=== PATIENT | male | born 1975 | race Caucasian/White ===

== ENCOUNTER → 2016-04-03 | Outpatient (CLI) | payer BC ==
--- NOTE | 2016-04-03 09:36 | US ---
EXAMINATION TYPE: US abdomen complete DATE OF EXAM: 04/03/2016 9:14 AM COMPARISON: No previous CLINICAL HISTORY: R10.11 rt upper quad pain. EXAM MEASUREMENTS: Liver Length: 17.0 cm Gallbladder Wall: 0.3 cm CBD: 0.3 cm Spleen: 12.3 cm Right Kidney: 9.2 x 4.7 x 5.3 cm Left Kidney: 10.3 x 6.0 x 5.9 cm FINDINGS: The liver is heterogeneous.. The intrahepatic portion of the IVC and proximal abdominal aorta are within normal limits. There is no evidence of cholelithiasis. Common bile duct is unremarkable. The visualized portions of the pancreas are obscured by bowel gas.. The spleen is unremarkable. Kid neys are symmetric and free of hydronephrosis. No renal lesions are seen. IMPRESSION: 1. Nonspecific pattern to the liver can be seen with fatty infiltration, hepatocellular disease inclu ding hepatitis. Correlate clinically.
--- NOTE | 2016-04-03 10:03 | ECHOF ---
Referral Reason:R07.89 chest pain MEASUREMENTS -------- HEIGHT: 172.7 cm WEIGHT: 90.7 kg BP: 128/89 RVIDd: 2.6 cm (< 3.3) IVSd: 1.0 cm (0.6 - 1.1) LVIDd: 4.9 cm (3.9 - 5.3) LVPWd: 0.9 cm (0.6 - 1.1) IVSs: 1.6 cm LVIDs: 3.2 cm LVPWs: 1.3 cm LA Diam: 3.3 cm (2.7 - 3.8) Ao Diam: 3.5 cm (2.0 - 3.7) AV Cusp: 2.1 cm (1.5 - 2.6) MV EXCURSION: 17.918 mm (> 18.000) MV EF SLOPE: 100 mm/s (70 - 150) EPSS: 0.2 cm MV E Ysamany: 0.75 m/s MV DecT: 337 ms MV A Yasmany: 0.57 m/s MV E/A Ratio: 1.32 FINDINGS -------- Sinus rhythm. This was a technically good study. The left ventricular size is normal. Left ventricular wall thickness is normal. Overall left ventricular systolic function is normal with, an EF between 60 - 65 %. The right ventricle is normal in size and function. The left atrium is normal in size. The right atrium is normal in size. Aortic valve is trileaflet and is mildly thickened. Normal appearing mitral valve. No mitral regurgitation. The tricuspid valve appears structurally normal. No regurgitation noted Trace/mild (physiologic) pulmonic regurgitation. The aortic root size is normal. Normal inferior vena cava with normal inspiratory collapse consistent with estimated right atrial pressure of 5 mmHg. There is no pericardial effusion. CONCLUSIONS -------- 1. Sinus rhythm. 2. Normal appearing mitral valve. 3. The tricuspid valve appears structurally normal. 4. Trace/mild (physiologic) pulmonic regurgitation. 5. The aortic root size is normal. 6. There is no pericardial effusion. 7. This was a technically good study. 8. The left ventricular size is normal. 9. Left ventricular wall thickness is normal. 10. Overall left ventricular systolic function is normal with, an EF between 60 - 65 %. 11. The right ventricle is normal in size and function. 12. The left atrium is normal in size. 13. The right atrium is normal in size. 14. Aortic valve is trileaflet and is mildly thickened. ELECTRICIAN FRONT: Irma Abreu RDCS
== END | disposition home or self-care (01) ==
LOC: RADECHMAIN 08:30
PROVIDERS: ATTEND Nurse Practitioner Adult Health
DX: R10.11 Right upper quadrant pain (principal)
CPT/HCPCS: 76700; 93306

== ENCOUNTER 2021-07-18 16:26 | Inpatient (IN) | payer BC ==
[2021-07-18 17:10] LABS: Basophils % (A) 1 %; Eosinophils # (A) 0.1 k/uL (0-0.7); Eosinophils % (A) 2 %; HCT 45.2 % (39.0-53.0); HGB 15.2 gm/dL (13.0-17.5); Lymphocytes # (A) 2.3 k/uL (1.0-4.8); Lymphocytes % (A) 33 %; MCH 28.3 pg (25.0-35.0); MCHC 33.7 g/dL (31.0-37.0); MCV 84.1 fL (80.0-100.0); Mean Platelet Volume 7.5; Monocytes # (A) 0.3 k/uL (0-1.0); Monocytes % (A) 5 %; Neutrophils # (A) 4.1 k/uL (1.3-7.7); Neutrophils % (A) 58 %; Platelet Count 335 k/uL (150-450); RBC 5.37 m/uL (4.30-5.90); RDW 13.3 % (11.5-15.5)
[2021-07-18 17:13] LABS: ALT 34 U/L (4-49); AST 30 U/L (17-59); African American GFR (CKD) >90 (>60 ml/min/1.73 sqM); Albumin 4.7 g/dL (3.5-5.0); Alkaline Phosphatase 129 U/L (38-126); Anion Gap 11 mmol/L; Blood Urea Nitrogen 12 mg/dL (9-20); Calcium 9.8 mg/dL (8.4-10.2); Carbon Dioxide 27 mmol/L (22-30); Chloride 98 mmol/L (98-107); Glucose 328 mg/dL (74-99); Magnesium 1.9 mg/dL (1.6-2.3); Non-African American GFR(CKD) >90 (>60 ml/min/1.73 sqM); Potassium 4.4 mmol/L (3.5-5.1); Sodium 136 mmol/L (137-145); Total Bilirubin 0.4 mg/dL (0.2-1.3); Total Protein 7.6 g/dL (6.3-8.2)
[2021-07-18 17:14] LABS: Appearance,Urine Clear (Clear); Bilirubin,Urine Negative (Negative); Blood,Urine Negative (Negative); Color,Urine Light Yellow; Glucose,Urine (UA) 4+ (Negative); Ketones,Urine Negative (Negative); Leukocyte Esterase,Urine Negative (Negative); Nitrite,Urine Negative (Negative); PH, Urine 6.5 (5.0-8.0); Protein,Urine Negative (Negative); Specific Gravity,Urine 1.024 (1.001-1.035); Urobilinogen,Urine <2.0 mg/dL (<2.0)
[2021-07-18 17:15] LABS: INR 0.9 (<1.2); Partial Thromboplastin Time 22.6 sec (22.0-30.0); Prothrombin Time 9.9 sec (9.0-12.0)
[2021-07-18] MEDS ORDERED: HEPARIN SODIUM 1,000 UN/ML (10ML VL) IV ONE (17:38)
[2021-07-18] MEDS ORDERED: ASPIRIN 325 MG TAB PO STA (17:38)
[2021-07-18] MEDS ORDERED: HEPARIN SODIUM 1,000 UN/ML (10ML VL) IV PRN (17:38)
[2021-07-18] MEDS ORDERED: ATORVASTATIN 80 MG TAB PO STA (17:39)
[2021-07-18] MEDS ORDERED: HEPARIN SOD,PORK IN 0.45% NACL 25,000 UNIT in 0.45% NACL 1 250ML.BAG IV SCH (17:45)
[2021-07-18] MEDS ORDERED: MORPHINE SULFATE 2 MG/ML SYRINGE IVP PRN (17:47)
--- NOTE | 2021-07-18 17:52 | ED ---
General Adult HPI - General Chief complaint: Chest Pain Stated complaint: Chest Pain Sent by Urgent Care Time Seen by Provider: 07/18/21 17:38 Source: patient, RN notes reviewed, old records reviewed Mode of arrival: ambulatory Limitations: no limitations - History of Present Illness Initial comments: 45-year-old male type II diabetic presents for evaluation of chest pain with radiation to bilateral shoulders. Pain is been present for the past 2 days. No associated vomiting or diaphoresis. Patient does have a strong family history of CAD. He does not have any personal history of coronary artery disease. Pain is been relatively constant over the past 2 days with some exertional component. - Related Data Allergies Allergy/AdvReac Type Severity Reaction Status Date / Time No Known Allergies Allergy Verified 07/18/21 16:33 Review of Systems ROS Statement: Those systems with pertinent positive or pertinent negative responses have been documented in the HPI. ROS Other: All systems not noted in ROS Statement are negative. Past Medical History Past Medical History: Diabetes Mellitus History of Any Multi-Drug Resistant Organisms: None Reported Past Surgical History: No Surgical Hx Reported Past Psychological History: Depression Smoking Status: Never smoker Past Alcohol Use History: None Reported Past Drug Use History: None Reported General Exam Limitations: no limitations General appearance: alert, in no apparent distress Head exam: Present: atraumatic, normocephalic Eye exam: Present: normal appearance, PERRL ENT exam: Present: normal exam Neck exam: Present: normal inspection. Absent: tenderness, meningismus Respiratory exam: Present: normal lung sounds bilaterally. Absent: respiratory distress, wheezes Cardiovascular Exam: Present: regular rate, normal rhythm GI/Abdominal exam: Present: soft. Absent: distended, tenderness, guarding Extremities exam: Present: normal inspection, normal capillary refill. Absent: pedal edema Neurological exam: Present: alert, oriented X3, CN II-XII intact. Absent: motor sensory deficit Psychiatric exam: Present: normal affect, normal mood Skin exam: Present: warm, dry, intact. Absent: cyanosis, diaphoretic Course Vital Signs 07/18/21 16:30 Temperature 98.1 F Pulse Rate 90 Respiratory 18 Rate Blood Pressure 159/107 O2 Sat by Pulse 99 Oximetry EKG Findings - EKG Comments: EKG Findings:: Sinus rhythm rate of 84, CT interval 145, QRS duration 97, QTC 392, inferior lateral T-wave inversion without ST segment elevation. Medical Decision Making - Medical Decision Making 45-year-old male presenting with 2 days of chest pain with typical features. P atient has EKG showing T-wave inversion in the inferior lateral leads. No ST segment elevation. Symptoms have been relatively constant over the past 2 days. His workup reveals a normal CBC was stable hemoglobin. Normal kidney function, elevated blood sugar and elevated troponin at 0.46. Patient is started on heparin for a non-ST segment elevated WI. I did discuss case with cardiology Dr. Goodman, and the admitting team [facility]. Patient is chest pain-free on reevaluation. He will be continued on heparin, aspirin, statin. - Lab Data Result diagrams: 07/18/21 16:56 07/18/21 16:56 Lab Results 07/18/21 07/18/21 07/18/21 Range/Units 16:56 16:56 16:56 WBC 7.0 (3.8-10.6) k/uL RBC 5.37 (4.30-5.90) m/uL Hgb 15.2 (13.0-17.5) gm/dL Hct 45.2 (39.0-53.0) % MCV 84.1 (80.0-100.0) fL MCH 28.3 (25.0-35.0) pg MCHC 33.7 (31.0-37.0) g/dL RDW 13.3 (11.5-15.5) % Plt Count 335 (150-450) k/uL MPV 7.5 Neutrophils % 58 % Lymphocytes % 33 % Monocytes % 5 % Eosinophils % 2 % Basophils % 1 % Neutrophils # 4.1 (1.3-7.7) k/uL Lymphocytes # 2.3 (1.0-4.8) k/uL Monocytes # 0.3 (0-1.0) k/uL Eosinophils # 0.1 (0-0.7) k/uL Basophils # 0.0 (0-0.2) k/uL PT 9.9 (9.0-12.0) sec INR 0.9 (<1.2) APTT 22.6 (22.0-30.0) sec Sodium 136 L (137-145) mmol/L Potassium 4.4 (3.5-5.1) mmol/L Chloride 98 (98-107) mmol/L Carbon Dioxide 27 (22-30) mmol/L Anion Gap 11 mmol/L BUN 12 (9-20) mg/dL Creatinine 0.87 (0.66-1.25) mg/dL Est GFR (CKD-EPI)AfAm >90 (>60 ml/min/1.73 sqM) Est GFR (CKD-EPI)NonAf >90 (>60 ml/min/1.73 sqM) Glucose 328 H (74-99) mg/dL Calcium 9.8 (8.4-10.2) mg/dL Magnesium 1.9 (1.6-2.3) mg/dL Total Bilirubin 0.4 (0.2-1.3) mg/dL AST 30 (17-59) U/L ALT 34 (4-49) U/L Alkaline Phosphatase 129 H (38-126) U/L Troponin I (0.000-0.034) ng/mL Total Protein 7.6 (6.3-8.2) g/dL Albumin 4.7 (3.5-5.0) g/dL Urine Color Urine Appearance (Clear) Urine pH (5.0-8.0) Ur Specific Elmore (1.001-1.035) Urine Protein (Negative) Urine Glucose (UA) (Negative) Urine Ketones (Negative) Urine Blood (Negative) Urine Nitrite (Negative) Urine Bilirubin (Negative) Urine Urobilinogen (<2.0) mg/dL Ur Leukocyte Esterase (Negative) 07/18/21 07/18/21 Range/Units 16:56 16:56 WBC (3.8-10.6) k/uL RBC (4.30-5.90) m/uL Hgb (13.0-17.5) gm/dL Hct (39.0-53.0) % MCV (80.0-100.0) fL MCH (25.0-35.0) pg MCHC (31.0-37.0) g/dL RDW (11.5-15.5) % Plt Count (150-450) k/uL MPV Neutrophils % % Lymphocytes % % Monocytes % % Eosinophils % % Basophils % % Neutrophils # (1.3-7.7) k/uL Lymphocytes # (1.0-4.8) k/uL Monocytes # (0-1.0) k/uL Eosinophils # (0-0.7) k/uL Basophils # (0-0.2) k/uL PT (9.0-12.0) sec INR (<1.2) APTT (22.0-30.0) sec Sodium (137-145) mmol/L Potassium (3.5-5.1) mmol/L Chloride (98-107) mmol/L Carbon Dioxide (22-30) mmol/L Anion Gap mmol/L BUN (9-20) mg/dL Creatinine (0.66-1.25) mg/dL Est GFR (CKD-EPI)AfAm (>60 ml/min/1.73 sqM) Est GFR (CKD-EPI)NonAf (>60 ml/min/1.73 sqM) Glucose (74-99) mg/dL Calcium (8.4-10.2) mg/dL Magnesium (1.6-2.3) mg/dL Total Bilirubin (0.2-1.3) mg/dL AST (17-59) U/L ALT (4-49) U/L Alkaline Phosphatase (38-126) U/L Troponin I 0.462 H* (0.000-0.034) ng/mL Total Protein (6.3-8.2) g/dL Albumin (3.5-5.0) g/dL Urine Color Light Yellow Urine Appearance Clear (Clear) Urine pH 6.5 (5.0-8.0) Ur Specific Elmore 1.024 (1.001-1.035) Urine Protein Negative (Negative) Urine Glucose (UA) 4+ H (Negative) Urine Ketones Negative (Negative) Urine Blood Negative (Negative) Urine Nitrite Negative (Negative) Urine Bilirubin Negative (Negative) Urine Urobilinogen <2.0 (<2.0) mg/dL Ur Leukocyte Esterase Negative (Negative) Critical Care Time Critical Care Time: Yes Total Critical Care Time: 35 Disposition Clinical Impression: Acute non-ST elevation myocardial infarction (NSTEMI) Disposition: ADMITTED IP TO THIS [facility] Condition: Stable Is patient prescribed a controlled substance at d/c from ED?: No Referrals: Debbi Vences DO [Primary Care Provider] - 1-2 days Time of Disposition: 17:52
--- NOTE | 2021-07-18 18:07 | XR ---
EXAMINATION TYPE: XR chest 2V DATE OF EXAM: 07/18/2021 COMPARISON: NONE HISTORY: Pain TECHNIQUE: 2 views FINDINGS: Heart is normal. Lungs are clear. Diaphragm is normal. Bony thorax appears normal. IMPRESSION: Normal chest.
[2021-07-18] MEDS ORDERED: NITROGLYCERIN SL TABS 0.4 MG TAB SUBLINGUAL PRN (18:21)
[2021-07-18] MEDS: METOPROLOL TARTRATE 25 MG TAB PO SCH (21:05)
--- NOTE | 2021-07-18 21:41 | P.CRDCN ---
History of Present Illness History of present illness: HISTORY OF PRESENTING ILLNESS Patient is pleasant 45-year-old male with history of hypertension, diabetes mellitus type 2, hyperlipidemia and family history of CAD who presents secondary to chest pain over last 2 days. He states he has been happening off and on and today it worsened while he was walking or had to sit down and could feel his heart racing faster and after slowing down somewhat the chest pain alleviated to some degree. It has been declining however admits is still "0-0.5" out of 10 and not sure if some of the discomfort is from his positioning. EKG shows normal sinus rhythm, normal axis, T-wave inversions in the inferior leads with minimal Q-wave in lead [address] elevation in lead 3. Prior echocardiogram from 2017 showed EF 60-65% without any significant valvular disease. Blood work showed normal hemoglobin, normal creatinine 0.8, elevated glucose 328, troponin 0.46. Patient was given aspirin and heparin and still states his pain is "0-0.5 ". Denies any associated diaphoresis, nausea, shortness breath. REVIEW OF SYSTEMS At the time of my exam: CONSTITUTIONAL: Denies fever or chills. CARDIOVASCULAR: +chest pain, no shortness of breath, orthopnea, PND or palpitations. RESPIRATORY: Denies cough. GASTROINTESTINAL: Denies abdominal pain, diarrhea, constipation, nausea or vomiting. MUSCULOSKELETAL: Denies myalgias. NEUROLOGIC: Denies numbness, tingling or weakness. ENDOCRINE: Denies fatigue, weight change, polydipsia or polyurina. GENITOURINARY: Denies burning, hematuria or urgency with micturation. HEMATOLOGIC: Denies history of anemia or bleeding. PHYSICAL EXAMINATION Vital signs reviewed. CONSTITUTIONAL: No apparent distress. HEENT: Head is normocephalic. Pupils are equal, round. Sclerae anicteric. Mucous membranes of the mouth are moist. No JVD. No carotid bruit. CHEST EXAMINATION: Lungs are clear to auscultation. No chest wall tenderness is noted on palpation or with deep breathing. HEART EXAMINATION: Regular rate and rhythm. S1, S2 heard. No murmurs, gallops or rub. ABDOMEN: Soft, nontender. Positive bowel sounds. EXTREMITIES: 2+ peripheral pulses, no lower extremity edema and no calf tenderness. NEUROLOGIC EXAMINATION: Patient is awake, alert and oriented x3. ASSESSMENT 1. Non-STEMI 2. Diabetes mellitus type 2 3. Chest pain related to non-STEMI 4. Family history of CAD PLAN Continue with aspirin, heparin drip. Discussed recommendations for heart catheterization is patient is agreeable. Check 2-D echo. Beta lianne as tolerated. Further recommendations to follow. Past Medical History Past Medical History: Diabetes Mellitus History of Any Multi-Drug Resistant Organisms: None Reported Past Surgical History: No Surgical Hx Reported Past Psychological History: Depression Smoking Status: Never smoker Past Alcohol Use History: None Reported Past Drug Use History: None Reported Medications and Allergies Home Medications Medication Instructions Recorded Confirmed Type Enalapril [Vasotec] 2.5 mg PO BID 07/18/21 07/18/21 History Rosuvastatin Calcium 10 mg PO HS 07/18/21 07/18/21 History metFORMIN HCL 500 mg PO BID 07/18/21 07/18/21 History Allergies Allergy/AdvReac Type Severity Reaction Status Date / Time No Known Allergies Allergy Verified 07/18/21 16:33 Physical Exam Vitals: Vital Signs Temp Pulse Resp BP Pulse Ox 07/18/21 20:07 99 F 83 14 143/108 98 07/18/21 16:30 98.1 F 90 18 159/107 99 Intake and Output 07/18/21 07/18/21 07/18/21 06:59 14:59 22:59 Other: Weight 88.451 kg Results 07/18/21 16:56 07/18/21 16:56 Cardiac Enzymes 07/18/21 07/18/21 Range/Units 16:56 16:56 AST 30 (17-59) U/L Troponin I 0.462 H* (0.000-0.034) ng/mL Coagulation 07/18/21 Range/Units 16:56 PT 9.9 (9.0-12.0) sec APTT 22.6 (22.0-30.0) sec CBC 07/18/21 Range/Units 16:56 WBC 7.0 (3.8-10.6) k/uL RBC 5.37 (4.30-5.90) m/uL Hgb 15.2 (13.0-17.5) gm/dL Hct 45.2 (39.0-53.0) % Plt Count 335 (150-450) k/uL Comprehensive Metabolic Panel 07/18/21 Range/Units 16:56 Sodium 136 L (137-145) mmol/L Potassium 4.4 (3.5-5.1) mmol/L Chloride 98 (98-107) mmol/L Carbon Dioxide 27 (22-30) mmol/L BUN 12 (9-20) mg/dL Creatinine 0.87 (0.66-1.25) mg/dL Glucose 328 H (74-99) mg/dL Calcium 9.8 (8.4-10.2) mg/dL AST 30 (17-59) U/L ALT 34 (4-49) U/L Alkaline Phosphatase 129 H (38-126) U/L Total Protein 7.6 (6.3-8.2) g/dL Albumin 4.7 (3.5-5.0) g/dL Current Medications Generic Name Dose Route Start Last Admin Trade Name Freq PRN Reason Stop Dose Admin Aspirin 325 mg 07/19/21 09:00 Aspirin 325 Mg Tab PO DAILY [facility] Heparin Sodium (Porcine) 0 unit 07/18/21 17:38 Heparin Sodium 1,000 Un/Ml (10ml Vl) IV PER PROTOCOL PRN Low PTT Protocol Heparin Sodium/Sodium Chloride 250 mls @ 9.995 mls/hr 07/18/21 17:45 07/18/21 18:04 25,000 unit/ Sodium Chloride IV 11.3 units/kg/hr .Q24H JOCELYNE 9.995 mls/hr Administration Protocol 11.3 UNITS/KG/HR Metoprolol Tartrate 25 mg 07/18/21 21:00 07/18/21 21:05 Metoprolol Tartrate 25 Mg Tab PO 25 mg BID JOCELYNE Administration Morphine Sulfate 2 mg 07/18/21 17:47 Morphine Sulfate 2 Mg/Ml Syringe IVP Q5M PRN Chest Pain Nitroglycerin 0.4 mg 07/18/21 18:21 Nitroglycerin Sl Tabs 0.4 Mg Tab SUBLINGUAL Q5M PRN Chest Pain Intake and Output 07/18/21 07/18/21 07/18/21 06:59 14:59 22:59 Other: Weight 88.451 kg Patient Weight 07/19/21 06:59 Weight 88.451 kg 07/18/21 16:56 07/18/21 16:56
[2021-07-19] MEDS: ATORVASTATIN 20 MG TAB PO SCH ×2 (00:15→21:49)
[2021-07-19 06:34] LABS: Glucose,Whole Blood 331 mg/dL (75-99)
[2021-07-19] MEDS: INSULIN ASPART (NovoLOG) 100 UNIT/ML VIAL SQ SCH ×4 (06:34→21:40)
[2021-07-19 08:35] LABS: INR 0.9 (<1.2); Prothrombin Time 10.2 sec (9.0-12.0)
[2021-07-19] MEDS: METOPROLOL TARTRATE 25 MG TAB PO SCH ×2 (08:43→21:49)
[2021-07-19 08:53] LABS: Basophils # (A) 0.1 k/uL (0-0.2); Basophils % (A) 1 %; Eosinophils # (A) 0.1 k/uL (0-0.7); Eosinophils % (A) 1 %; HCT 45.1 % (39.0-53.0); HGB 15.3 gm/dL (13.0-17.5); Lymphocytes % (A) 31 %; MCH 28.7 pg (25.0-35.0); MCV 84.4 fL (80.0-100.0); Mean Platelet Volume 7.8; Monocytes # (A) 0.4 k/uL (0-1.0); Monocytes % (A) 6 %; Neutrophils # (A) 3.7 k/uL (1.3-7.7); Neutrophils % (A) 58 %; Platelet Count 314 k/uL (150-450); RBC 5.35 m/uL (4.30-5.90); RDW 13.3 % (11.5-15.5); WBC 6.4 k/uL (3.8-10.6)
[2021-07-19] MEDS ORDERED: ASPIRIN 325 MG TAB PO SCH (09:00)
[2021-07-19] MEDS ORDERED: VERAPAMIL 2.5 MG/ML 2 ML AMP ONE (10:46)
[2021-07-19] MEDS ORDERED: SODIUM CHLORIDE 0.9% 1,000 ML IV ONE (10:47)
[2021-07-19] MEDS ORDERED: HEPARIN SODIUM 1,000 UN/ML (10ML VL) ONE ×2 (11:09→12:02)
[2021-07-19] MEDS ORDERED: fentaNYL (PF) 50 MCG/ML 2 ML AMP ONE (11:10)
[2021-07-19] MEDS ORDERED: MIDAZOLAM 2 MG/2 ML VIAL IV ONE (11:12)
[2021-07-19] MEDS ORDERED: fentaNYL (PF) 50 MCG/ML 2 ML AMP IV ONE (11:12)
[2021-07-19] MEDS ORDERED: LIDOCAINE 1% INJ 10MG/ML (5 ML VIAL-PF) SQ ONE (11:18)
[2021-07-19] MEDS ORDERED: VERAPAMIL SYRINGE (5 MG/10 ML) INTRAARTER ONE (11:20)
[2021-07-19] MEDS: HEPARIN SODIUM 1,000 UN/ML (10ML VL) IV ONE ×5 (11:23→12:27)
[2021-07-19] MEDS ORDERED: TICAGRELOR 90 MG TAB PO ONE (11:35)
[2021-07-19] MEDS ORDERED: TICAGRELOR 90 MG TAB ONE (11:35)
[2021-07-19] MEDS: NITROGLYCERIN 1000MCG/10ML SYRINGE INTRACORON ONE ×3 (11:38→12:00)
--- NOTE | 2021-07-19 11:59 | CA ---
Transthoracic Echo Report Name: Micky Aranda Age: 45 Gender: M : 1975 Exam Date: 07/19/2021 08:10 Exam Location: [facility] Ht (in): 69 Wt (lb): 180 Ordering Physician: Ben Horowitz MD Attending/Referring Phys: [id number], Lor [employer]omic[employer] Investigator Hui Howe RDCS Procedure CPT: Indications: nstemi Cardiac Hx: Technical Quality: Good Contrast 1: Total Dose (mL): Contrast 2: Total Dose (mL): MEASUREMENTS (Male / Female) Normal Values 2D ECHO LV Diastolic Diameter PLAX 3.6 cm 4.2 - 5.9 / 3.9 - 5.3 cm LV Systolic Diameter PLAX 2.8 cm IVS Diastolic Thickness 1.0 cm 0.6 - 1.0 / 0.6 - 0.9 cm LVPW Diastolic Thickness 1.2 cm 0.6 - 1.0 / 0.6 - 0.9 cm LV Relative Wall Thickness 0.6 LA Volume 21.9 cm??? 18 - 58 / 22 - 52 cm??? M-MODE Aortic Root Diameter MM 3.6 cm LA Systolic Diameter MM 2.9 cm LA Ao Ratio MM 0.8 MV E Point Septal Separation 0.5 cm AV Cusp Separation MM 2.0 cm DOPPLER AV Peak Velocity 87.0 cm/s AV Peak Gradient 3.0 mmHg MV Area PHT 4.7 cm??? Mitral E Point Velocity 69.9 cm/s Mitral A Point Velocity 65.1 cm/s Mitral E to A Ratio 1.1 MV Deceleration Time 162.1 ms MV E' Velocity 8.4 cm/s Mitral E to MV E' Ratio 8.4 TR Peak Velocity 165.5 cm/s TR Peak Gradient 11.0 mmHg Right Ventricular Systolic Press 15.7 mmHg FINDINGS Left Ventricle Left ventricular ejection fraction is estimated at 50-55 %. Normal Left ventricular size, wall thickness, systolic function with no obvious regional wall motion abnormalities. Normal Left ventricular diastolic filling pattern. Questionable basal inferior hypokinesis Right Ventricle The right ventricle is normal in size and function. Right Atrium The right atrium is normal in size. Left Atrium The left atrium is normal in size. Mitral Valve Structurally normal mitral valve without significant stenosis or prolapse. There is trace mitral regurgitation. Aortic Valve Structurally normal aortic valve without significant sclerosis or stenosis. There is no aortic regurgitation. Tricuspid Valve Structurally normal tricuspid valve without significant stenosis. Pulmonary artery systolic pressure is normal. Trace tricuspid regurgitation. Pulmonic Valve Structurally normal pulmonic valve without significant stenosis. There is no pulmonic regurgitation. Pericardium Normal pericardium without effusion. Aorta Normal aortic root dimension. CONCLUSIONS Left ventricular systolic function is normal. Basal inferior wall appears mildly hypokinetic. Previewed by: Dr. Micah Riley MD (Electronically Signed) Final Date: 19 Jul 2021 11:58
[2021-07-19 12:03] LABS: Chol/HDL Ratio 3.11 Ratio
[2021-07-19] MEDS ORDERED: IOPAMIDOL-370 125ML BTL INJ ONE (12:12)
[2021-07-19] MEDS ORDERED: NITROGLYCERIN 1000MCG/10ML SYRINGE INTRACORON ONE (12:23)
[2021-07-19] MEDS ORDERED: IOPAMIDOL-370 100ML BTL INJ ONE (12:35)
--- NOTE | 2021-07-19 12:57 | P.PRCINT ---
Percutaneous Coronary Int. - Percutaneous Coronary Intervention Percutaneous Coronary Intervention: PROCEDURES PERFORMED: Left heart catheterization, bilateral coronary angiography, PCI proximal LAD 3.5 x 15 mm Xience JAMES, kissing balloon angioplasty proximal LAD/ diagonal 1 with 2.75 x 12 mm noncompliant and 2.25 x 1 2 mm noncompliant respectively, PCI mid circumflex with 2.75 x 12 mm Xience JAMES postdilated with a 3.0 noncompliant balloon INDICATION: Non-STEMI CONSENT:I have discussed the risks, benefits and alternative therapies for the above-mentioned procedure and for both sedation/analgesia as well as necessary blood product administration, if indicated, as they pertain to this patient. The patient has indicated understanding and acceptance of the risks and procedures discussed. PROCEDURE: After the risks, benefits and alternatives of the above mentioned procedure explained in detail with the patient, informed consent was obtained. Patient was taken to the catheterization lab and prepped and draped in usual fashion. 1% lidocaine was used to anesthetize the right radial artery. A 6- Chadian sheath was placed in the right radial artery using modified Seldinger technique. Left coronary angiography was performed with a 5-Chadian JL 3.5 catheter and right coronary angiography was performed with a 5-Chadian JR5 catheter in various views. A 5-Chadian FR5 catheter was inserted into the left ventricle and pressure measurements were obtained. The decision was made to perform PCI of the proximal LAD and circumflex. Heparin was given for ACT greater than 250. A 6-Chadian CLS 3.0 guide was used to engage the left main. A 0.014 BMW wire was advanced into the distal LAD. Predilation was performed with 2.5 x 12 mm and then 3.0 x 12 mm noncompliant balloons. Next a 3.5 x 15 mm Xience JAMES was placed in the proximal LAD covering the diagonal branch. There was disease noted before intervention of the diagonal 1 branch with 70% proximal stenosis. After intervention there was a 90% diagonal 1 stenosis and therefore balloon angioplasty was recommended. Therefore a second 0.014 BMW wire was advanced into the distal diagonal branch. Balloon angioplasty was performed through the struts with a 1.5 mm balloon. Next kissing balloon angioplasty was performed with a 2.25 x 12 mm noncompliant balloon in the diagonal 1 branch and a 2.75 x 12 mm noncompliant balloon in the LAD. Preintervention there is LEANNE-3 flow and 85% LAD stenosis as well as diagonal 170% stenosis and post intervention there was less than 10% LAD stenosis and less than 30% diagonal 1 stenosis with LEANNE 3 flow. The BMW wire was advanced into the distal circumflex. Primary stenting was performed with a 2.75 x 12 mm Xience JAMES. The stent was postdilated with a 3.0 x 8 mm noncompliant balloon. Preintervention there was 99% stenosis with LEANNE 2 flow and post intervention there was 0% stenosis with LEANNE 3 flow. The right radial sheath was removed and a TR band was placed with hemostasis achieved. The patient tolerated the procedure well. Patient was transported back to the post catheterization holding area in stable condition. Conscious Sedation: Patient was monitored under the direct supervision of vision of myself for conscious sedation using Versed and fentanyl for a total duration of 81 minutes HEMODYNAMICS: Aorta: 98/62 LV: 102/2, LVEDP 9 SELECTIVE CORONARY ARTERIOGRAPHY: LEFT MAIN: The left main is a large caliber vessel which bifurcates into the LAD and circumflex. There is no significant stenosis. LEFT ANTERIOR DESCENDING CORONARY ARTERY: LAD is a large caliber vessel which wraps around to the apex. There is a proximal LAD 85% stenosis involving the diagonal 1 branch. Diagonal 1 branch is small to moderate caliber with a diffuse proximal 70% stenosis. There are mild luminal irregularities of the mid LAD and a mid to distal 60% LAD stenosis. LEFT CIRCUMFLEX CORONARY ARTERY: Left circumflex is a moderate caliber vessel with a mid circumflex 99% stenosis with LEANNE 2 flow. OM1 is a proximal 60-70% stenosis. Otherwise there is no significant disease.. RIGHT CORONARY ARTERY: The right coronary artery is a moderate to large caliber vessel which gives off a PDA and PLV branch and is the dominant vessel. The PDA has mild luminal irregularities. The PLV is very small caliber and has diffuse 70% stenosis. FINAL IMPRESSION: 1. CAD as described above including 85% proximal LAD stenosis, 70% diagonal 1 stenosis, mid to distal LAD 60% stenosis, mid circumflex 99% stenosis, OM1 60s to 70% stenosis, small caliber PLV 70% stenosis 2. S/p successful PCI proximal LAD 3.5 x 15 mm Xience JAMES, kissing balloon angioplasty proximal LAD/ diagonal 1 with 2.75 x 12 mm noncompliant and 2.25 x 12 mm noncompliant respectively, PCI mid circumflex with 2.75 x 12 mm Xience JAMES postdilated with a 3.0 noncompliant balloon 3. Normal left sided filling pressures PLAN: 1. Aggressive risk factor modification per most recent ACC/AHA guidelines. 2. Continue dual antiplatelets with aspirin and Brillinta for 12 months. 3. Would treat remainder of distal LAD 60%, proximal OM1 60-70% and small caliber PLV 70% stenosis medically. Monitor for any recurrent angina.
[2021-07-19] MEDS ORDERED: ATROPINE SULFATE 0.1 MG/ML 10ML SYRINGE IV PRN (12:58)
[2021-07-19] MEDS ORDERED: NITROGLYCERIN SL TABS 0.4 MG TAB SUBLINGUAL PRN (12:58)
[2021-07-19] MEDS ORDERED: MAG HYDROX/AL HYDROX/SIMETH 30 ML CUP PO PRN (12:58)
[2021-07-19] MEDS ORDERED: ZOLPIDEM 5 MG TAB PO PRN (12:58)
[2021-07-19] MEDS ORDERED: RX INFO: IV CONTRAST WAS GIVEN 1 EACH MISC MISCELLANE PRN (12:58)
[2021-07-19] MEDS: SODIUM CHLORIDE 0.9% 1,000 ML in EMPTY BAG 1 BAG IV SCH (13:26)
[2021-07-19 13:46] LABS: Glucose,Whole Blood 257 mg/dL (75-99)
[2021-07-19 16:31] LABS: Glucose,Whole Blood 374 mg/dL (75-99)
--- NOTE | 2021-07-19 17:49 | P.HPIM ---
History of Present Illness H&P Date: 07/19/21 Chief Complaint: Chest pain 45-year-old male type II diabetic presents for evaluation of chest pain with radiation to bilateral shoulders. Pain is been present for the past 2 days. No associated vomiting or diaphoresis. Patient does have a strong family history of CAD. He does not have any personal history of coronary artery disease. Pain is been relatively constant over the past 2 days with some exertional component. EKG shows normal sinus rhythm, normal axis, T-wave inversions in the inferior leads with minimal Q-wave in lead [address] elevation in lead 3. Prior echocardiogram from 2017 showed EF 60-65% without any significant valvular disease. Blood work showed normal hemoglobin, normal creatinine 0.8, elevated glucose 328, troponin 0.46. Patient was given aspirin and heparin and still states his pain is "0-0.5 ". Denies any associated diaphoresis, nausea, shortness breath. Review of Systems REVIEW OF SYSTEMS: CONSTITUTIONAL: No fever, no malaise, no fatigue. HEENT: No recent visual problems or hearing problems. Denied any sore throat. CARDIOVASCULAR: No chest pain, orthopnea, PND, no palpitations, no syncope. PULMONARY: No shortness of breath, no cough, no hemoptysis. GASTROINTESTINAL: No diarrhea, no nausea, no vomiting, no abdominal pain. NEUROLOGICAL: No headaches, no weakness, no numbness. HEMATOLOGICAL: Denies any bleeding or petechiae. GENITOURINARY: Denies any burning micturition, frequency, or urgency. MUSCULOSKELETAL/RHEUMATOLOGICAL: Denies any joint pain, swelling, or any muscle pain. ENDOCRINE: Denies any polyuria or polydipsia. The rest of the 14-point review of systems is negative. Past Medical History Past Medical History: Diabetes Mellitus History of Any Multi-Drug Resistant Organisms: None Reported Past Surgical History: No Surgical Hx Reported Additional Past Surgical History / Comment(s): Vastectomy Past Anesthesia/Blood Transfusion Reactions: No Reported Reaction Past Psychological History: Depression Smoking Status: Never smoker Past Alcohol Use History: None Reported Past Drug Use History: None Reported Medications and Allergies Home Medications Medication Instructions Recorded Confirmed Type Enalapril [Vasotec] 2.5 mg PO BID 07/18/21 07/18/21 History Rosuvastatin Calcium 10 mg PO HS 07/18/21 07/18/21 History metFORMIN HCL 500 mg PO BID 07/18/21 07/18/21 History Allergies Allergy/AdvReac Type Severity Reaction Status Date / Time No Known Allergies Allergy Verified 07/18/21 16:33 Physical Exam Vitals: Vital Signs Temp Pulse Pulse Resp BP BP Pulse Ox 07/19/21 08:40 97.3 F L 85 18 131/86 99 07/19/21 08:36 18 07/19/21 04:00 97.9 F 80 17 120/73 99 07/19/21 02:00 82 07/19/21 00:00 98.1 F 82 17 121/72 99 07/18/21 20:07 99 F 83 14 143/108 98 07/18/21 19:15 98.6 F 77 17 127/73 97 07/18/21 16:30 98.1 F 90 18 159/107 99 Intake and Output 07/18/21 07/19/21 07/19/21 22:59 06:59 14:59 Intake Total 44.978 916.492 Balance 44.978 916.492 Intake: Intake, IV Titration 44.978 16.492 Amount Heparin Sod,Pork in 0.45% 44.978 16.492 NaCl 25,000 unit In 0.45 % NaCl 1 250ml.bag @ 11.3 UNITS/KG/HR 9.995 mls/hr IV .Q24H JOCELYNE Rx#: [id number] Oral 900 Other: # Voids 2 Weight 86.4 kg PHYSICAL EXAMINATION: GENERAL: The patient is alert and oriented x3, not in any acute distress. Well developed, well nourished. HEENT: Pupils are round and equally reacting to light. EOMI. No scleral icterus. No conjunctival pallor. Normocephalic, atraumatic. No pharyngeal erythema. No thyromegaly. CARDIOVASCULAR: S1 and S2 present. No murmurs, rubs, or gallops. PULMONARY: Chest is clear to auscultation, no wheezing or crackles. ABDOMEN: Soft, nontender, nondistended, normoactive bowel sounds. No palpable organomegaly. MUSCULOSKELETAL: No joint swelling or deformity. EXTREMITIES: No cyanosis, clubbing, or pedal edema. NEUROLOGICAL: Gross neurological examination did not reveal any focal deficits. SKIN: No rashes. Results CBC & Chem 7: 07/19/21 07:38 07/18/21 16:56 Labs: Abnormal Lab Results - Last 24 Hours (Table) 07/18/21 07/18/21 07/18/21 Range/Units 16:56 16:56 16:56 Sodium 136 L (137-145) mmol/L Glucose 328 H (74-99) mg/dL POC Glucose (mg/dL) (75-99) mg/dL Alkaline Phosphatase 129 H (38-126) U/L Troponin I 0.462 H* (0.000-0.034) ng/mL Urine Glucose (UA) 4+ H (Negative) 07/18/21 07/18/21 07/19/21 Range/Units 20:40 23:25 06:32 Sodium (137-145) mmol/L Glucose (74-99) mg/dL POC Glucose (mg/dL) 331 H (75-99) mg/dL Alkaline Phosphatase (38-126) U/L Troponin I 0.930 H* 1.500 H* (0.000-0.034) ng/mL Urine Glucose (UA) (Negative) Thrombosis Risk Factor Assmnt - Choose All That Apply Any of the Below Risk Factors Present?: Yes Each Factor Represents 1 point: Age 41-60 years, Obesity (BMI >25) Other Risk Factors: No Other congenital or acquired thrombophilia - If yes, enter type in comment: No Thrombosis Risk Factor Assessment Total Risk Factor Score: 2 Thrombosis Risk Factor Assessment Level: Low Risk Assessment and Plan Assessment: 1. Non-ST elevation UT/chest pain; we will monitor EKG and trend troponin; continue with aspirin, statins and IV heparin - Cardiology is consulted and recommending 2-D echo and proceed with cardiac catheterization 2. Hyperglycemia/diabetes mellitus type 2; blood sugar is markedly elevated; we will monitor Accu-Cheks before meals and at bedtime with insulin sliding scale 3. Hypertension; metoprolol 25 mg twice a day; enalapril 2.5 mg twice a day 3. Hyperlipidemia; continue with home statin therapy DVT prophylaxis; SCDs/IV heparin CODE STATUS; full code
[2021-07-19 21:09] LABS: Glucose,Whole Blood 291 mg/dL (75-99)
[2021-07-19] MEDS: TICAGRELOR 90 MG TAB PO SCH (21:49)
[2021-07-20] MEDS: SODIUM CHLORIDE 0.9% 1,000 ML in EMPTY BAG 1 BAG IV SCH ×2 (00:23→12:26)
[2021-07-20 06:06] LABS: Glucose,Whole Blood 265 mg/dL (75-99)
[2021-07-20] MEDS: INSULIN ASPART (NovoLOG) 100 UNIT/ML VIAL SQ SCH ×2 (06:33→12:25)
[2021-07-20 07:29] LABS: Basophils # (A) 0.1 k/uL (0-0.2); Basophils % (A) 1 %; Eosinophils # (A) 0.1 k/uL (0-0.7); Eosinophils % (A) 1 %; HCT 45.5 % (39.0-53.0); HGB 15.1 gm/dL (13.0-17.5); Lymphocytes # (A) 1.5 k/uL (1.0-4.8); Lymphocytes % (A) 22 %; MCH 28.2 pg (25.0-35.0); MCHC 33.2 g/dL (31.0-37.0); MCV 84.9 fL (80.0-100.0); Mean Platelet Volume 7.3; Monocytes # (A) 0.5 k/uL (0-1.0); Monocytes % (A) 7 %; Neutrophils # (A) 4.6 k/uL (1.3-7.7); Neutrophils % (A) 67 %; Platelet Count 315 k/uL (150-450); RBC 5.35 m/uL (4.30-5.90); RDW 13.4 % (11.5-15.5); WBC 6.9 k/uL (3.8-10.6)
[2021-07-20 07:47] LABS: African American GFR (CKD) >90 (>60 ml/min/1.73 sqM); Anion Gap 10 mmol/L; Blood Urea Nitrogen 11 mg/dL (9-20); Calcium 9.2 mg/dL (8.4-10.2); Carbon Dioxide 23 mmol/L (22-30); Chloride 102 mmol/L (98-107); Glucose 262 mg/dL (74-99); Non-African American GFR(CKD) >90 (>60 ml/min/1.73 sqM); Potassium 4.7 mmol/L (3.5-5.1); Sodium 135 mmol/L (137-145)
[2021-07-20] MEDS ORDERED: ASPIRIN 81 MG PO SCH (09:00)
[2021-07-20 09:54] VITALS: RESP 18; TEMP 98.5
[2021-07-20] MEDS: METOPROLOL TARTRATE 25 MG TAB PO SCH (09:56)
[2021-07-20] MEDS: TICAGRELOR 90 MG TAB PO SCH (09:57)
--- NOTE | 2021-07-20 10:17 | P.PN ---
Subjective HISTORY OF PRESENTING ILLNESS Patient is pleasant 45-year-old male with history of hypertension, diabetes mellitus type 2, hyperlipidemia and family history of CAD who presents secondary to chest pain over last 2 days. He states he has been happening off and on and today it worsened while he was walking or had to sit down and could feel his heart racing faster and after slowing down somewhat the chest pain alleviated to some degree. It has been declining however admits is still "0-0.5" out of 10 and not sure if some of the discomfort is from his positioning. EKG shows normal sinus rhythm, normal axis, T-wave inversions in the inferior leads with minimal Q-wave in lead [address] elevation in lead 3. Prior echocardiogram from 2017 showed EF 60-65% without any significant valvular disease. Blood work showed normal hemoglobin, normal creatinine 0.8, elevated glucose 328, troponin 0.46. Patient was given aspirin and heparin and still states his pain is "0-0.5 ". Denies any associated diaphoresis, nausea, shortness breath. 07/20 Patient seen and examined. He did undergo PCI of the LAD and circumflex yesterday with kissing balloon angioplasty of the diagonal and LAD branch. He has been well since. He was placed on dual antiplatelets. Echo showed low normal EF 50-55%. Cholesterol levels surprisingly fairly well-controlled on the Crestor 10 mg daily at home however we will increase to high intensity statin and apolipoproteins sent. PHYSICAL EXAMINATION Vital signs reviewed. CONSTITUTIONAL: No apparent distress. HEENT: Head is normocephalic. Pupils are equal, round. Sclerae anicteric. Mucous membranes of the mouth are moist. No JVD. No carotid bruit. CHEST EXAMINATION: Lungs are clear to auscultation. No chest wall tenderness is noted on palpation or with deep breathing. HEART EXAMINATION: Regular rate and rhythm. S1, S2 heard. No murmurs, gallops or rub. ABDOMEN: Soft, nontender. Positive bowel sounds. EXTREMITIES: 2+ peripheral pulses, no lower extremity edema and no calf tenderness. NEUROLOGIC EXAMINATION: Patient is awake, alert and oriented x3. ASSESSMENT 1. Non-STEMI, status post PCI LAD, circumflex 07/19 2. Diabetes mellitus type 2 3. Chest pain related to non-STEMI 4. Family history of CAD 5. Coronary artery disease status post PCI LAD and circumflex PLAN Continue dual antiplatelets. Patient is status post PCI and would treat remainder of distal circumflex and small caliber PLV medically. Continue with beta lianne. Increase statin despite relatively normal cholesterol levels and apolipoproteins were sent and pending. Patient stable for discharge home cardiac standpoint. Objective - Vital Signs Vital signs: Vital Signs Temp 98.5 F 07/20/21 09:51 Pulse 89 07/20/21 09:51 Resp 18 07/20/21 09:51 BP 122/88 07/20/21 09:51 Pulse Ox 99 07/20/21 09:51 FiO2 Intake & Output 07/19/21 07/20/21 07/20/21 18:59 06:59 18:59 Intake Total 610.828 600 540 Balance 610.828 600 540 Intake: IV 500 Intake, IV Titration 110.828 Amount Heparin Sod,Pork in 0.45% 110.828 NaCl 25,000 unit In 0.45 % NaCl 1 250ml.bag @ 11.3 UNITS/KG/HR 9.995 mls/hr IV .Q24H JOCELYNE Rx#: [id number] Oral 600 540 Other: Voiding Method Toilet Toilet # Voids 2 - Labs CBC & Chem 7: 07/20/21 06:46 07/20/21 06:46 Labs: Abnormal Lab Results - Last 24 Hours (Table) 07/19/21 07/19/21 07/19/21 Range/Units 13:34 16:30 21:07 Sodium (137-145) mmol/L Glucose (74-99) mg/dL POC Glucose (mg/dL) 257 H 374 H 291 H (75-99) mg/dL 07/20/21 07/20/21 Range/Units 05:50 06:46 Sodium 135 L (137-145) mmol/L Glucose 262 H (74-99) mg/dL POC Glucose (mg/dL) 265 H (75-99) mg/dL
[2021-07-20] MEDS ORDERED: ATORVASTATIN 80 MG TAB PO SCH (10:30)
[2021-07-20 11:47] LABS: Glucose,Whole Blood 316 mg/dL (75-99)
[2021-07-20 12:25] VITALS: BP 131/92; PULSE 84
[2021-07-22 04:36] LABS: B/A1 Ratio 0.43 Ratio (0.35 - 1.00)
== END 2021-07-20 14:13 | disposition home or self-care (01) | DRG 247 ==
LOC: EC 16:26 → 3SCARD 17:47
PROVIDERS: ADMIT Internal Medicine; ATTEND Internal Medicine
PROC: 027035Z Dilation of Coronary Artery, One Artery with Two Drug-eluting Intraluminal Devices, Percutaneous Approach (ICD-10-PCS; principal; 2021-07-19 11:00)
PROC: 02703ZZ Dilation of Coronary Artery, One Artery, Percutaneous Approach (ICD-10-PCS; 2021-07-19 11:00)
PROC: 4A023N7 Measurement of Cardiac Sampling and Pressure, Left Heart, Percutaneous Approach (ICD-10-PCS; 2021-07-19 11:00)
PROC: B2111ZZ Fluoroscopy of Multiple Coronary Arteries using Low Osmolar Contrast (ICD-10-PCS; 2021-07-19 11:00)
DX: I21.4 Non-ST elevation (NSTEMI) myocardial infarction (principal); I25.119 Atherosclerotic heart disease of native coronary artery with unspecified angina pectoris; E11.65 Type 2 diabetes mellitus with hyperglycemia; I10 Essential (primary) hypertension; I08.1 Rheumatic disorders of both mitral and tricuspid valves; F32.A Depression, unspecified; E78.5 Hyperlipidemia, unspecified; Z79.899 Other long term (current) drug therapy; Z82.49 Family history of ischemic heart disease and other diseases of the circulatory system; Z79.84 Long term (current) use of oral hypoglycemic drugs; Z98.61 Coronary angioplasty status
CPT/HCPCS: 36415; 71046; 80048; 80053; 80061; 81003; 82172; 83735; 84484; 85025; 85610; 85730; 92921; 93005; 93306; 93458; 96374; 99291

== ENCOUNTER → 2021-09-19 | Outpatient (CLI) | payer BC ==
[2021-09-19 14:16] LABS: HCT 42.5 % (39.6-50.0); HGB 14.5 g/dL (13.0-17.0); MCHC 34.1 g/dL (32.0-37.0); MCV 82.2 fL (80.0-97.0); Mean Platelet Volume 10.3 fL (9.5-12.2); NRBC Per 100 WBC 0 /100 WBCS (0.0-0.0); Platelet Count 308 X 10*3/uL (140-440); RBC 5.17 X 10*6/uL (4.40-5.60); RDW 12.8 % (11.5-14.5); WBC 5.69 X 10*3/uL (4.50-10.00)
[2021-09-19 14:59] LABS: ALT 36 U/L (10-49); AST 29 U/L (14-35); African American GFR (CKD) 119.1 (60.0-200.0); Albumin 4.6 g/dL (3.8-4.9); Albumin/Globulin Ratio 1.77 (1.60-3.17); Alkaline Phosphatase 120 U/L (41-126); BUN/Creat Ratio 15.67 Ratio (12.00-20.00); Blood Urea Nitrogen 14.1 mg/dL (9.0-27.0); Calcium 9.6 mg/dL (8.7-10.3); Carbon Dioxide 23.1 mmol/L (20.0-27.5); Chloride 99 mmol/L (96-109); Chol/HDL Ratio 2.72 Ratio; Creatine Kinase 64 U/L (35-257); Globulin 2.6 g/dL (1.6-3.3); Glucose 312 mg/dL (70-110); Non-African American GFR(CKD) 102.8 (60.0-200.0); Potassium 4.4 mmol/L (3.5-5.5); Sodium 138 mmol/L (135-145); Total Protein 7.2 g/dL (6.2-8.2); VLDL Calculation 15.54 mg/dL (5.00-40.00)
== END | disposition home or self-care (01) ==
LOC: LABWHC1 09:50
PROVIDERS: ATTEND Family Medicine
DX: E11.9 Type 2 diabetes mellitus without complications (principal); I25.10 Atherosclerotic heart disease of native coronary artery without angina pectoris; G47.62 Sleep related leg cramps
CPT/HCPCS: 36415; 80053; 80061; 82306; 82550; 83036; 83735; 84443; 85027

== ENCOUNTER → 2021-12-10 | Outpatient (CLI) | payer BC ==
--- NOTE | 2021-12-10 11:15 | NM ---
EXAMINATION TYPE: NM stress cardiolite complete DATE OF EXAM: 12/10/2021 COMPARISON: NONE HISTORY: Chest TECHNIQUE: After the intravenous administration of 9.75 mCi Tc 99m Sestamibi - Rest images obtained 75 minutes post injection. The patient exercised using a ELIDA protocol and 1 minute prior to peak exercise was injected with 25.1 mCi Tc 99m Sestamibi - Stress images obtained 10 minutes post injecti on. FINDINGS: Targeted heart rate was achieved during performance of the study. Review of stress and rest SPECT edward ges demonstrates no distinct perfusion abnormality. Gated analysis shows normal wall motion with an estimated left ventricular ejection fraction of 50 %. IMPRESSION: No scintigraphic evidence for reversible ischemia
== END | disposition home or self-care (01) ==
LOC: RADNMMAIN 07:44
PROVIDERS: ATTEND Family Medicine
DX: I25.2 Old myocardial infarction (principal); I21.4 Non-ST elevation (NSTEMI) myocardial infarction
CPT/HCPCS: 93017; 78452; A9500

== ENCOUNTER 2022-11-30 11:21 | Day surgery (SDC) | payer BC ==
[2022-11-25 11:32] VITALS: BMI 28.8
[~2022-11-30 11:21] MED LIST: LACTATED RINGERS 1,000 ML IV SCH; LIDOCAINE 1% (10MG/ML) FOR IV START INTRADERMA PRN; ONDANSETRON 4 MG/2 ML VIAL IVP PRN
[2022-11-30 12:19] LABS: Glucose,Whole Blood 102 mg/dL (70-110)
[2022-11-30 12:20] VITALS: RESP 16; TEMP 96.7
[2022-11-30] MEDS ORDERED: PROPOFOL 10 MG/ML 20 ML VIAL IV ONE (12:57)
--- NOTE | 2022-11-30 13:00 | P.GSHP ---
History of Present Illness H&P Date: 11/30/22 Chief Complaint: Screening colonoscopy This a 47-year-old male presents today for screening colonoscopy. Patient denies any significant GI complaints. Past Medical History Past Medical History: Diabetes Mellitus, Myocardial Infarction (OK), Osteoarthritis (OA) Additional Past Medical History / Comment(s): [place] 2021 stents x2, arthritis takes celebrex Last Myocardial Infarction Date:: 2021 History of Any Multi-Drug Resistant Organisms: None Reported Past Surgical History: Heart Catheterization With Stent Additional Past Surgical History / Comment(s): Vastectomy, egd, Past Anesthesia/Blood Transfusion Reactions: No Reported Reaction Additional Past Anesthesia/Blood Transfusion Reaction / Comment(s): no blood transfusion Date of Last Stent Placement:: 2021 Smoking Status: Former smoker Medications and Allergies Home Medications Medication Instructions Recorded Confirmed Type Enalapril [Vasotec] 2.5 mg PO DAILY 07/18/21 11/30/22 History Rosuvastatin Calcium 10 mg PO HS 07/18/21 11/30/22 History metFORMIN HCL 500 mg PO BID 07/18/21 11/30/22 History Aspirin 81 mg PO DAILY tab 07/20/21 11/30/22 Rx Metoprolol Tartrate [Lopressor] 25 mg PO BID 30 Days #60 tab 07/20/21 11/30/22 Rx Celecoxib [CeleBREX] 200 mg PO DAILY 11/25/22 11/30/22 History Clopidogrel [Plavix] 75 mg PO DAILY 11/25/22 11/30/22 History Dapagliflozin Propanediol [Farxiga] 10 mg PO DAILY 11/25/22 11/30/22 History Escitalopram [Lexapro] 5 mg PO DAILY 11/25/22 11/30/22 History Semaglutide [Ozempic] 0.5 mg SQ WEEKLY 11/25/22 11/30/22 History Allergies Allergy/AdvReac Type Severity Reaction Status Date / Time No Known Allergies Allergy Verified 11/30/22 11:49 Surgical - Exam Vital Signs Temp Pulse Resp BP Pulse Ox 96.7 F L 78 16 138/83 98 11/30/22 11:48 11/30/22 11:48 11/30/22 11:48 11/30/22 11:48 11/30/22 11:48 - General well developed, well nourished, no distress - Eyes PERRL - ENT normal pinna, normal nares - Neck no masses - Respiratory normal expansion - Cardiovascular Rhythm: regular - Abdomen Abdomen: soft, non tender Assessment and Plan Assessment: We'll perform screening colonoscopy.
--- NOTE | 2022-11-30 13:15 | P.OP ---
Date of Procedure: 11/30/22 Preoperative Diagnosis: Screening colonoscopy Postoperative Diagnosis: Normal colonoscopy, poor bowel prep Procedure(s) Performed: Colonoscopy Anesthesia: MAC Surgeon: Sushil Hickey Pathology: none sent Condition: stable Disposition: PACU Description of Procedure: The patient's placed on the endoscopy table in the lateral position. He received IV sedation. Digital rectal exam was performed. This revealed no abnormalities. The prostate was symmetrical without nodules. The flexible colonoscope was then placed patient anus and passed throughout the entire colon. The ileocecal valve was visualized. Patient had a very poor bowel prep. The scope was withdrawn. The visualized right colon appeared normal. However the prep was suboptimal. The transverse colon, descending colon and sigmoid colon appeared normal however the prep was quite poor. There was a large amount of liquid stool in the colon. The scope was then brought back the rectum and this appeared normal. Scope withdrawn for patient.
[2022-11-30 13:39] VITALS: BP 118/79; PULSE 71
== END 2022-11-30 13:47 | disposition home or self-care (01) ==
LOC: ORWHC2ENDO 11:21
PROVIDERS: ATTEND Surgery
DX: Z12.11 Encounter for screening for malignant neoplasm of colon (principal); E11.9 Type 2 diabetes mellitus without complications; I25.2 Old myocardial infarction; M19.90 Unspecified osteoarthritis, unspecified site; Z87.891 Personal history of nicotine dependence; Z79.84 Long term (current) use of oral hypoglycemic drugs; Z79.82 Long term (current) use of aspirin; Z79.1 Long term (current) use of non-steroidal anti-inflammatories (NSAID); Z79.02 Long term (current) use of antithrombotics/antiplatelets; Z79.899 Other long term (current) drug therapy
CPT/HCPCS: 45378; J2704

== ENCOUNTER → 2023-04-22 | Outpatient (CLI) | payer BC ==
--- NOTE | 2023-04-23 08:48 | NM ---
EXAMINATION TYPE: NM bone scan whole body DATE OF EXAM: 04/22/2023 4:18 PM CLINICAL INDICATION:Male, 47 years old with history of E11.59 DIABETES I10 HTN R74.8 ELEVATED ALKALIN E PHOSPHATE; COMPARISON: 07/18/2021 chest radiograph TECHNIQUE: Intravenous administration 22.5 mCi Tc 99m MDP followed by multiple scintigraphic images o f the appendicular and axial skeleton. Images acquired 3 hours post injection. FINDINGS: There are 2 foci of uptake in the lower left posterior ribs seen on the left posterior oblique view o nly and left anterior oblique imaging. There is increased uptake within the bilateral shoulder, ardon oclavicular, and sacroiliac joints consistent with degenerative changes. No other photopenic areas o r areas of increased activity are identified. Physiologic radiotracer activity is demonstrated in the kidneys and bladder. IMPRESSION: 2 foci of left posterior rib uptake possibly relating to injury versus less likely metastatic disease . Correlate with cross-sectional imaging.
== END | disposition home or self-care (01) ==
LOC: RADNMMAIN 10:45
PROVIDERS: ATTEND Family Medicine
DX: E11.59 Type 2 diabetes mellitus with other circulatory complications (principal); I10 Essential (primary) hypertension
CPT/HCPCS: 78306; A9503

== ENCOUNTER → 2023-04-22 | Outpatient (CLI) | payer BC ==
[2023-04-22 16:05] LABS: Homocysteine 9.12 UMOL/L (4.00-14.00)
[2023-04-22 16:18] LABS: C Reactive Protein <0.30 mg/dL (0.00-0.80)
[2023-04-22 19:23] LABS: Insulin Level 4.4 mIU/mL (3.0-25.0)
== END | disposition home or self-care (01) ==
LOC: LABWHC1 07:26
PROVIDERS: ATTEND Family Medicine
DX: E11.8 Type 2 diabetes mellitus with unspecified complications (principal); E63.9 Nutritional deficiency, unspecified
CPT/HCPCS: 36415; 82306; 82533; 82607; 82627; 82746; 83090; 83525; 84402; 84403; 86001; 86140; 86141